=== PATIENT | female | born 1985 | race Caucasian/White ===

== ENCOUNTER 2021-10-03 01:45 | Day surgery (SDC) | payer BC, SELFPAY ==
[2021-09-27 17:57] VITALS: BMI 27.8
--- NOTE | 2021-09-27 18:24 | SUR.PREOP ---
Report to the Outpatient Waiting Room, entrance under the green pavilion located off [facility], at time 0930 on date 10/03/21. OR Time: 1130. - You and your visitor will be asked to self-screen and do not enter if you have any COVID symptoms. - Only one visitor and NO children visitors are allowed at this time. - The patient visitor is requested to leave or wait in car when not with patient due to restrictions. - A mask is required within the hospital. Patients may have clear liquids (water, carbonated beverages, clear teas, apple juice) until 3 hours prior to surgery (0830) with a maximum of 20 ounces. - No food from midnight until time of surgery - Infants may have breast milk until 4 hours before surgery, formula 6 hours prior to surgery. - Children will be allowed to drink immediately following surgery. If applicable, please bring a bottle or sippy cup to assist with drinking. Juice, water, soda, and popsicles are readily available. For infants on formula, please bring formula the day of surgery. Pacifiers are allowed. Take the following medications with a SIP of water the morning of surgery: NA Medications to discontinue per physician Vitamins/supplements 3 days Date to take last dose 09/30/2021 Please no make-up, nail macedonian, hairspray, perfume, deodorant, or body powder the day of surgery. No jewelry (including any body piercings) or valuables the day of surgery, leave them at home. Please take a shower or bath the night before, or the morning of, surgery with an antibacterial soap. Wear comfortable, loose fitting clothing. Children are encouraged to wear pajamas. - Jewelry must be removed prior to entering the operating room. Rings and piercings that are not removed may be cut off. - The hospital will not accept responsibility for valuables. - Please leave all valuables, including medications, at home the day of surgery. If you are going home after surgery, a licensed national van truck driver must drive you home. - NO public transportation without another adult. - We recommend that an adult stay with you for 24 hours following discharge. - We also recommend that you do not drive, make important decision, drink alcoholic beverages, or take any drugs that were not prescribed by your health care provider for at least 24 hours after your discharge time. For Pediatric surgeries, we recommend two adults accompany the child home (only one inside the building at this time). Follow any additional instructions given to you from your surgeon. If you or anyone in your household have experienced Covid symptoms in the past week, please notify your surgeon or the nurse liaison at the phone number below for possible testing. Telephone instructions given to patient and asked if any additional questions and then verbalized understanding. Patient advised to call surgeon office or pre surgery nurse liaison [phone] if any additional questions.
[2021-10-03] VITALS (8 sets, daily range): BP systolic 107–129; BP diastolic 58–83; PULSE 60–89; RESP 10–16; TEMP 36–36.2; O2SAT 100
--- NOTE | 2021-10-03 08:05 | WPDHPUPDATE1 ---
History and Physical Update Update Date/Time: 10/03/21 08:05 History and Physical has been reviewed, including an updated exam of the patient. There are NO changes in the patient's condition. Risks, benefits, and alternatives have been discussed and questions answered. Patient agrees to proceed with procedure.
--- NOTE | 2021-10-03 08:05 | PM.HPGS ---
History of Present Illness History of Present Illness Consent: Risks, benefits, and alternatives have been discussed and questions answered. Patient agrees to proceed with procedure. Chief complaint: desires sterilization Narrative: Yolanda Kim is a 36 year old female requesting sterilization. Options were reviewed. Patient prefers to have salpingectomies. Plan is to proceed with laparoscopic salpingectomy for sterilization. Risks of infection, bleeding, injury to internal organs, and tubal failure with increased ectopic are reviewed. The permanent and irreversible sterilizing nature of the tubal ligation especially salpingectomies was reviewed. The patient voices understanding and agrees to proceed. Review of Systems Musculoskeletal: Musculoskeletal: Reports back pain and Reports arthralgias [facility] Past Medical History Medical History (Updated 10/03/21 @ 08:08 by Fadia Ash MD) Elective 2004 surgical Psoriatic arthritis Surgical History Surgical History (Updated 10/03/21 @ 08:08 by Fadia Ash MD) History of bladder surgery 1989 had her bladder ?stretched? Hx of tonsillectomy Social History Social History Smoking packs per day: 1 Smoking cigarettes per day: 20.0 Years smoked: 10 Smoking pack-years: 10.00 Smoking status: Former smoker Tobacco type: cigarettes Smoking end date: 09/12/09 Alcohol intake: former Living arrangements: with family Spiritual care concerns: No Meds Home Medications and Allergies Home Medications Medication Instructions Recorded Confirmed Type Lactobacillus 25 billion 1 cap PO DAILY 09/27/21 09/27/21 History cell-Bifido 25 billion [id number] capsule (Women's Probiotic) adalimumab 40 mg/0.4 mL 40 mg subcut DIRECTED 09/27/21 09/27/21 History subcutaneous pen kit (Humira(CF) Pen) ascorbate calcium (vitamin C) 500 500 mg PO DAILY 09/27/21 09/27/21 History mg capsule cholecalciferol (vitamin D3) 125 125 mcg PO DAILY 09/27/21 09/27/21 History mcg (5,000 unit) tablet (Vitamin D3) levomefolate--vitamins B12-B6 2.8 1 tablet PO DAILY 09/27/21 09/27/21 History mg-2 mg-25 mg tablet magnesium gluconate 500 mg tablet 1,000 mg PO DAILY 09/27/21 09/27/21 History yxawb-vpd-SC-[id number]-vbu-epa-fish 1 tablet PO DAILY 09/27/21 09/27/21 History oil 200 mcg-1,000 unit-25 mg tab,chew mv-mn-iron fum-folic acid-omega 3, 1 cap PO DAILY 09/27/21 09/27/21 History 6, 9 no.3 18 mg-600 mcg capsule Allergies Allergy/AdvReac Type Severity Reaction Status Date / Time amoxicillin [From Augmentin] Allergy Mild Hives Verified 09/27/21 17:52 clavulanic acid Allergy Mild Hives Verified 09/27/21 17:52 [From Augmentin] gluten AdvReac Mild Unknown Verified 09/27/21 17:53 Exam Const: General: healthy appearing and alert Orientation/consciousness: patient oriented x3 GI: GI Palp: Yes Soft to palpation, No Tenderness to palpation present (GI) and No Palpable mass present : External Female Exam: normal external appearance Speculum Exam - Vagina: normal appearance of the vagina and normal vaginal discharge Speculum Exam - Cervix: normal appearance of the cervix Bimanual exam- vagina & uterus: uterine size normal and consistency normal Bimanual Exam- Adnexa, other: normal adnexae and No adnexal tenderness Neuro: General: patient oriented x3 Assessment and Plan Assessment and plan (1) Encounter for sterilization: Code(s): Z30.2 - Encounter for sterilization Status: Acute Assessment and Plan: Plan to proceed with laparoscopic bilateral tubal ligation via salpingectomies.
--- NOTE | 2021-10-03 08:12 | P.PNAN_ITS ---
Anes - Initial Pre Proc Eval Procedure: Operation Date: 10/03/21 11:15 Proposed Procedures p Bilateral Laparoscopic Salpingectomy - Fadia Ash MD Date/Time: 10/03/21 08:12 Surgeon: Fadia Ash MD Pre Op Diagnosis: desires sterilization Patient Data Age: 36 Gender: F Height: 1.63 m Weight: 73.6 kg Allergies Allergy/AdvReac Type Severity Reaction Status Date / Time amoxicillin [From Augmentin] Allergy Mild Hives Verified 10/03/21 09:27 clavulanic acid Allergy Mild Hives Verified 10/03/21 09:27 [From Augmentin] gluten AdvReac Mild Unknown Verified 10/03/21 09:27 Home Medications Medication Instructions Recorded Confirmed Type Lactobacillus 25 billion 1 cap PO DAILY 09/27/21 09/27/21 History cell-Bifido 25 billion shrn-XFO-kvhhn capsule (Women's Probiotic) adalimumab 40 mg/0.4 mL 40 mg subcut DIRECTED 09/27/21 09/27/21 History subcutaneous pen kit (Humira(CF) Pen) ascorbate calcium (vitamin C) 500 500 mg PO DAILY 09/27/21 09/27/21 History mg capsule cholecalciferol (vitamin D3) 125 125 mcg PO DAILY 09/27/21 09/27/21 History mcg (5,000 unit) tablet (Vitamin D3) levomefolate--vitamins B12-B6 2.8 1 tablet PO DAILY 09/27/21 09/27/21 History mg-2 mg-25 mg tablet magnesium gluconate 500 mg tablet 1,000 mg PO DAILY 09/27/21 09/27/21 History ogkck-btn-OS-C7-sq5-upp-epa-fish 1 tablet PO DAILY 09/27/21 09/27/21 History oil 200 mcg-1,000 unit-25 mg tab,chew mv-mn-iron fum-folic acid-omega 3, 1 cap PO DAILY 09/27/21 09/27/21 History 6, 9 no.3 18 mg-600 mcg capsule Patient hx anesthesia problems: none Family hx anesthesia problems: none Results Review: All pre-operative results and documents have been reviewed as part of the pre- operative evaluation. [facility] Past Medical History Medical History (Updated 10/03/21 @ 08:08 by Fadia Ash MD) Elective 2004 surgical Psoriatic arthritis Surgical History Surgical History (Updated 10/03/21 @ 08:08 by Fadia Ash MD) History of bladder surgery 1989 had her bladder ?stretched? Hx of tonsillectomy Social History Social History Smoking packs per day: 1 Smoking cigarettes per day: 20.0 Years smoked: 10 Smoking pack-years: 10.00 Smoking status: Former smoker Tobacco type: cigarettes Smoking end date: 09/12/09 Alcohol intake: former Living arrangements: with family Spiritual care concerns: No Anes - Eval Final PreProcedure Day of Procedure 10/03/21 08:12 Patient weight: overweight Heart: regular rate and rhythm Lungs: clear to auscultation and normal air movement Airway: Mallampati scale class II Neurological: alert and oriented Last oral intake: >/= 8 hours ASA classification: II Emergent: no Anesthetic plan: proceed Anesthesia type and monitoring: general ETT Results Review: All pre-operative results and documents have been reviewed as part of the pre- operative evaluation. Informed Consent: The patient's anesthetic plan and its attendant risks and benefits were discussed with the patient/family/POA. Questions were solicited and answers provided to the satisfaction of the patient/family/POA.
[2021-10-03] MEDS: ACETAMINOPHEN 500 MG TABLET 1000 MG PO (09:35)
[2021-10-03] MEDS: LACTATED RINGERS 1,000 ML 30 ML IV CONT ×2 (09:40→11:45)
[2021-10-03] MEDS: KETOROLAC 15 MG/ML VIAL (*BKC) IV PUSH (10:49)
--- NOTE | 2021-10-03 11:40 | W.PM.PROC2 ---
Procedure Note - Detailed Date of Procedure 10/03/21 Pre-op Diagnosis desires sterilization Post-op Diagnosis Same Procedure Performed Laparoscopic bilateral salpingectomy Surgeon Fadia Ash MD Anesthesia General Findings Normal-appearing tubes ovaries and uterus Description of Procedure The patient was taken to the operating room and placed under anesthesia in the dorsal lithotomy position. She was prepped and draped in the usual sterile fashion. Bladder was drained with a red rubber catheter 14oz of urine. The bivalve speculum was placed in the vagina and the cervix grasped on the anterior lip with a tenaculum. The acorn manipulator was placed. Attention was then turned to the abdomen where a vertical skin incision was made at the base of the umbilicus. The abdomen is tented and the Veress needle placed. The water drop test is normal and opening patient pressure is 3mmHg. Pneumoperitoneum was obtained to a patient pressure of 15. The Veress needle was then removed and the 5mm Optiview placed. Intra-abdominal placement was confirmed with the laparoscoped. The patient was placed in Trendelenburg and a 5mm trocars placed in the midline 2cm above the symphysis pubis. The blunt probe was used to bring the tubes into the surgical field and inspect the pelvis which appears normal. The 3rd 5mm is placed slightly to the left in the lower quadrant under direct visualization. The LigaSure was used to cauterize the mesiosalpinx while the critical care physician assistant holds the tube elevated with an atraumatic grasper. Once the cornu was reached the tube was crossclamped and cauterized. The identical procedure was performed on both sides. The tubes are removed through the ports and the ports are removed. Good hemostasis is noted. All instruments are removed. Pneumoperitoneum was reduced. Skin incisions were closed using 4-0 nylon in interrupted fashion. Vaginal instruments are removed. Sterile bandages are applied and patient was awakened from anesthesia. Sponge, needle, and instrument counts are correct per the OR staff. Taken to recovery in stable condition Estimated Blood Loss 5 Drains No Packing No Pathology Yes (Bilateral tubes) Complications No immediate complications Condition Stable Disposition PACU
[2021-10-03] MEDS: fentaNYL CITRATE INJ (*CRX) 100 MCG/2 ML VIAL 25 MCG IV PUSH ×2 (12:00→12:10)
== END 2021-10-03 13:40 | disposition home or self-care (01) ==
PROVIDERS: Visit Provider Obstetrics & Gynecology Gynecology
PROC: (CPT 49320; principal; 2021-10-03 11:15)
DX: Z30.2 Encounter for sterilization (principal); L40.50 Arthropathic psoriasis, unspecified; Z87.891 Personal history of nicotine dependence
CPT/HCPCS: 58661; 88302; A9270; J1885; J2250; J2704; J3010; J7120